=== PATIENT | female | born 1995 | race Caucasian/White ===

== ENCOUNTER 2019-05-14 00:57 | Emergency (ER) | payer BC ==
[~2019-05-14] VITALS: Ht 170.2 cm; Wt 63.6 kg
[2019-05-14 01:04] VITALS: TEMP 98.3
[2019-05-14 01:50] VITALS: BP 117/87; PULSE 91
== END 2019-05-14 01:50 | disposition home or self-care (01) ==
LOC: COL.ER 00:57
DX: S61.210A Laceration without foreign body of right index finger without damage to nail, initial encounter (principal); W26.8XXA Contact with other sharp object(s), not elsewhere classified, initial encounter; Y92.009 Unspecified place in unspecified non-institutional (private) residence as the place of occurrence of the external cause

== ENCOUNTER → 2019-05-22 | Outpatient (CLI) | payer BC ==
[2019-05-22 16:54] VITALS: BP 124/60; PULSE 75; TEMP 98.4
== END ==
LOC: COL.ER 16:49
DX: S61.211D Laceration without foreign body of left index finger without damage to nail, subsequent encounter (principal); X58.XXXD Exposure to other specified factors, subsequent encounter